=== PATIENT | female | born 1985 | race American Indian/Alaskan Native ===

== ENCOUNTER 2019-07-16 21:17 | Emergency (ER) | payer SELFPAY ==
--- NOTE | 2019-07-16 21:41 | Emergency Department Report ---
{null, Blank Doc - Documentation Documentation: 34-year-old female that presents with janelle flank pain. Was diagnosed with UTI last month but pains started again today. Patient had a syncopal episode in the waiting room before patient has been tinged. Patient refused to Main ED. Will order labs and CT of head }
[2019-07-16 22:13] LABS: Hematocrit 38.7 % (30.3-42.9); Hemoglobin 13.6 gm/dl (10.1-14.3); Mean Corpuscular HGB Conc 35 % (30-34); Mean Corpuscular Volume 94 fl (79-97); Platelet Count 285 K/mm3 (140-440); Red Blood Count 4.13 M/mm3 (3.65-5.03); Red Cell Distribution Width 12.3 % (13.2-15.2)
[2019-07-16] MEDS ORDERED: fentaNYL 100 MCG/2 ML INJ IV ONE (22:28)
[2019-07-16] MEDS ORDERED: SODIUM CHLORIDE 0.9% 1000 ML 1,000 ML IV ONE (22:28)
[2019-07-16] MEDS ORDERED: ONDANSETRON 4 MG/2 ML INJ IV ONE (22:28)
[2019-07-16 22:37] LABS: Alanine Aminotransferase 20 units/L (7-56); Albumin 4.9 g/dL (3.9-5); BUN/Creatinine Ratio 11; Blood Urea Nitrogen 9 mg/dL (7-17); Calcium 9.5 mg/dL (8.4-10.2); Hemolysis Index 4
--- NOTE | 2019-07-16 22:38 | Emergency Department Report ---
{null, HPI - General Chief Complaint: Abdominal Pain Time Seen by Provider: 07/16/19 21:39 - HPI HPI: Room 23 The patient is a 34-year-old female present with a chief complaint of back pain. Patient states was diagnosed with a UTI 1 month ago and completed her course of antibiotics. The patient states she was in her usual state of health until this morning when she developed bilateral flank pain described as sharp and waxing and waning in nature. Patient admits to nausea vomiting and chills. Patient denies dysuria but admits to hematuria only because she is currently on her cycle (normal time). Patient currently gives her pain a score of 9/10 ED Past Medical Hx - Past Medical History Previous Medical History?: Yes Additional medical history: UTI - Surgical History Past Surgical History?: No Additional Surgical History: Bilateral salpingectomy - Family History Family history: no significant - Social History Smoking Status: Never Smoker Substance Use Type: Marijuana - Medications Home Medications: Home Medications Medication Instructions Recorded Confirmed Last Taken Type Ciprofloxacin HCl [Ciprofloxacin 500 mg PO Q12HR #20 tab 07/17/19 Unknown Rx TAB] HYDROcodone/APAP 5-325 [[place] 1 - 2 each PO Q6HR PRN #14 tablet 07/17/19 Unknown Rx 5/325] Ibuprofen [Motrin 800 MG tab] 800 mg PO Q8HR PRN #20 tablet 07/17/19 Unknown Rx Promethazine [Phenergan] 25 mg PO Q6HR PRN #20 tab 07/17/19 Unknown Rx ED Review of Systems ROS: Stated complaint: BACK PAIN Other details as noted in HPI Constitutional: chills Eyes: denies: eye pain ENT: denies: throat pain Respiratory: no symptoms reported Cardiovascular: denies: chest pain Endocrine: no symptoms reported Gastrointestinal: nausea, vomiting. denies: abdominal pain Genitourinary: hematuria. denies: dysuria, abnormal menses Musculoskeletal: back pain Neurological: denies: headache Physical Exam - Physical Exam Physical Exam: GENERAL: The patient is well-developed well-nourished female lying on stretcher appearing to be in moderate discomfort. [] HEENT: Normocephalic. Atraumatic. Extraocular motions are intact. Patient has moist mucous membranes. NECK: Supple. Trachea midline CHEST/LUNGS: Clear to auscultation. There is no respiratory distress noted. HEART/CARDIOVASCULAR: Regular. There is no tachycardia. There is no gallop rub or murmur. ABDOMEN: Abdomen is soft, nontender. Patient has normal bowel sounds. There is no abdominal distention. SKIN: There is no rash. There is no edema. There is no diaphoresis. NEURO: The patient is awake, alert, and oriented. The patient is cooperative. The patient has no focal neurologic deficits. The patient has normal speech. Cranial nerves II through XII grossly intact, no drift MUSCULOSKELETAL: There is bilateral flank pain. There is no evidence of acute injury. ED Medical Decision Making - Lab Data Result diagrams: 07/16/19 21:50 07/16/19 21:50 Laboratory Tests 07/16/19 07/16/19 07/16/19 21:50 21:50 21:50 WBC 8.7 RBC 4.13 Hgb 13.6 Hct 38.7 MCV 94 MCH 33 H MCHC 35 H RDW 12.3 L Plt Count 285 Add Manual Diff Complete Total Counted 100 Seg Neutrophils % Care Tech Seg Neuts % (Manual) 89.0 H Band Neutrophils % 0 Lymphocytes % (Manual) 10.0 L Reactive Lymphs % (Man) 0 Monocytes % (Manual) 1.0 Eosinophils % (Manual) 0 Basophils % (Manual) 0 Metamyelocytes % 0 Myelocytes % 0 Promyelocytes % 0 Blast Cells % 0 Nucleated RBC % Not Reportable Seg Neutrophils # Man 7.7 Band Neutrophils # 0.0 Lymphocytes # (Manual) 0.9 L Abs React Lymphs (Man) 0.0 Monocytes # (Manual) 0.1 Eosinophils # (Manual) 0.0 Basophils # (Manual) 0.0 Metamyelocytes # 0.0 Myelocytes # 0.0 Promyelocytes # 0.0 Blast Cells # 0.0 WBC Morphology Not Reportable Hypersegmented Neuts Not Reportable Hyposegmented Neuts Not Reportable Hypogranular Neuts Not Reportable Smudge Cells Not Reportable Toxic Granulation Not Reportable Toxic Vacuolation Not Reportable Dohle Bodies Not Reportable Pelger-Huet Anomaly Not Reportable Priscilla Rods Not Reportable Platelet Estimate Not Reportable Clumped Platelets Rare Plt Clumps, EDTA Not Reportable Large Platelets 1+ Giant Platelets Not Reportable Platelet Satelliting Not Reportable Plt Morphology Comment Not Reportable RBC Morphology Not Reportable Dimorphic RBCs Not Reportable Polychromasia Not Reportable Hypochromasia Not Reportable Poikilocytosis Not Reportable Anisocytosis Few Microcytosis Not Reportable Macrocytosis Not Reportable Spherocytes Not Reportable Pappenheimer Bodies Not Reportable Sickle Cells Not Reportable Target Cells Not Reportable Tear Drop Cells Not Reportable Ovalocytes Not Reportable Helmet Cells Not Reportable [place]-Lang[place] Bodies Not Reportable Kathleen Rings Not Reportable [place] Cells Not Reportable Bite Cells Not Reportable Crenated Cell Not Reportable Elliptocytes Not Reportable Acanthocytes (Spur) Not Reportable Rouleaux Not Reportable Hemoglobin C Crystals Not Reportable Schistocytes Not Reportable Malaria parasites Not Reportable Hamzah Bodies Not Reportable Hem Pathologist Commnt No Sodium 145 Potassium 3.4 L Chloride 105.8 Carbon Dioxide 19 L Anion Gap 24 BUN 9 Creatinine 0.8 Estimated GFR > 60 BUN/Creatinine Ratio 11 Glucose 175 H Calcium 9.5 Total Bilirubin 0.30 AST 24 ALT 20 Alkaline Phosphatase 55 Troponin T < 0.010 Total Protein 8.0 Albumin 4.9 Albumin/Globulin Ratio 1.6 HCG, Qual Negative Urine Color Urine Turbidity Urine pH Ur Specific [place] Urine Protein Urine Glucose (UA) Urine Ketones Urine Blood Urine Nitrite Urine Bilirubin Urine Urobilinogen Ur Leukocyte Esterase Urine WBC (Auto) Urine RBC (Auto) U Epithel Cells (Auto) Urine Bacteria (Auto) Urine Mucus Urine Opiates Screen Urine Methadone Screen Ur Barbiturates Screen Ur Phencyclidine Scrn Ur Amphetamines Screen U Benzodiazepines Scrn Urine Cocaine Screen U Marijuana (THC) Screen Drugs of Abuse Note 07/16/19 07/16/19 22:21 22:21 WBC RBC Hgb Hct MCV MCH MCHC RDW Plt Count Add Manual Diff Total Counted Seg Neutrophils % Seg Neuts % (Manual) Band Neutrophils % Lymphocytes % (Manual) Reactive Lymphs % (Man) Monocytes % (Manual) Eosinophils % (Manual) Basophils % (Manual) Metamyelocytes % Myelocytes % Promyelocytes % Blast Cells % Nucleated RBC % Seg Neutrophils # Man Band Neutrophils # Lymphocytes # (Manual) Abs React Lymphs (Man) Monocytes # (Manual) Eosinophils # (Manual) Basophils # (Manual) Metamyelocytes # Myelocytes # Promyelocytes # Blast Cells # WBC Morphology Hypersegmented Neuts Hyposegmented Neuts Hypogranular Neuts Smudge Cells Toxic Granulation Toxic Vacuolation Dohle Bodies Pelger-Huet Anomaly Priscilla Rods Platelet Estimate Clumped Platelets Plt Clumps, EDTA Large Platelets Giant Platelets Platelet Satelliting Plt Morphology Comment RBC Morphology Dimorphic RBCs Polychromasia Hypochromasia Poikilocytosis Anisocytosis Microcytosis Macrocytosis Spherocytes Pappenheimer Bodies Sickle Cells Target Cells Tear Drop Cells Ovalocytes Helmet Cells Lowry-Langston Bodies Kathleen Rings Erma Cells Bite Cells Crenated Cell Elliptocytes Acanthocytes (Spur) Rouleaux Hemoglobin C Crystals Schistocytes Malaria parasites Hamzah Bodies Hem Pathologist Commnt Sodium Potassium Chloride Carbon Dioxide Anion Gap BUN Creatinine Estimated GFR BUN/Creatinine Ratio Glucose Calcium Total Bilirubin AST ALT Alkaline Phosphatase Troponin T Total Protein Albumin Albumin/Globulin Ratio HCG, Qual Urine Color Yellow Urine Turbidity Clear Urine pH 5.0 Ur Specific [place] 1.011 Urine Protein <15 mg/dl Urine Glucose (UA) 50 Urine Ketones Tr Urine Blood Lg Urine Nitrite Neg Urine Bilirubin Neg Urine Urobilinogen < 2.0 Ur Leukocyte Esterase Neg Urine WBC (Auto) 21.0 H Urine RBC (Auto) 64.0 U Epithel Cells (Auto) 11.0 Urine Bacteria (Auto) 2+ Urine Mucus 3+ Urine Opiates Screen Presumptive negative Urine Methadone Screen Presumptive negative Ur Barbiturates Screen Presumptive negative Ur Phencyclidine Scrn Presumptive negative Ur Amphetamines Screen Presumptive negative U Benzodiazepines Scrn Presumptive negative Urine Cocaine Screen Presumptive negative U Marijuana (THC) Screen Presumptive positive Drugs of Abuse Note Disclamer - EKG Data -: EKG Interpreted by [place] EKG shows normal: sinus rhythm Rate: normal - EKG Data When compared to previous EKG there are: previous EKG unavailable Interpretation: other (No ischemic changes seen) - Radiology Data Radiology results: report reviewed (CT abdomen pelvis), image reviewed (CT abdomen pelvis) [facility] [address] [place] [address] Cat Scan Report Signed Patient: AYLEEN ROJAS MR #: [id number] : 1985 Acct:[id number] Age/Sex: 34 / F ADM Date: 07/16/19 Loc: ED Attending Dr: Ordering Physician: ANA PAULA LAYTON MD Date of Service: 07/16/19 Procedure(s): CT abdomen pelvis w con Accession Number(s): [id number] cc: ANA PAULA LAYTON MD CT abdomen pelvis w con INDICATION: Back pain, pyuria. History of UTI 1 month ago. TECHNIQUE: All CT scans at this location are performed using the following dose modulation technique: Automated exposure control. Helical slices were obtained through the abdomen and pelvis. No contrast is administered. COMPARISON: None available. FINDINGS: Abdomen: No acute abnormality is seen in the lower chest. There is fatty infiltration of the liver adjacent to the falciform ligament. There are multiple tiny hypodensities in the liver which are too small to characterize. Statistically these are likely benign and likely represent tiny cysts. The spleen, pancreas, adrenal glands, and kidneys show no acute abnormalities. There is no hydronephrosis. There is no adenopathy. The aorta is normal in diameter. There is no obstruction, inflammation, or free air. Pelvis: The appendix is unremarkable. There is no obstruction or inflammation. There is no adenopathy. Phleboliths. On review of bone windows, no acute osseous abnormalities are seen. IMPRESSION: 1. There is no obstruction, inflammation, or free air. There are no abnormal fluid collections. No acute abnormality is seen in the abdomen or pelvis. Signer Name: Will Camacho MD Signed: 07/17/2019 12:43 AM Workstation Name: [id number] Transcribed By: SS Dictated By: Will Camacho MD Electronically Authenticated By: Will Camacho MD Signed Date/Time: 07/17/1942 DD/ 0039 TD/TT: - Differential Diagnosis Pyelonephritis, renal abscess, UTI, renal colic Critical care attestation.: If time is entered above; I have spent that time in minutes in the direct care of this critically ill patient, excluding procedure time. ED Disposition Clinical Impression: Pyelonephritis, Acute back pain Disposition: DC-01 TO HOME OR SELFCARE Is pt being admited?: No Does the pt Need Aspirin: No Condition: Stable Instructions: Abdominal Pain (ED) Additional Instructions: Return to the emergency department should you develop worsening symptoms, inability to tolerate food or liquids, high fever or any other concerns Prescriptions: Ciprofloxacin HCl [Ciprofloxacin TAB] 500 mg PO Q12HR #20 tab Ibuprofen [Motrin 800 MG tab] 800 mg PO Q8HR PRN #20 tablet PRN Reason: Pain, Moderate (4-6) HYDROcodone/APAP 5-325 [[place] 5/325] 1 - 2 each PO Q6HR PRN #14 tablet PRN Reason: Pain Promethazine [Phenergan] 25 mg PO Q6HR PRN #20 tab PRN Reason: Nausea Referrals: [facility] [Outside] - 3-5 Days Time of Disposition: 00:56 }
[2019-07-16 23:10] LABS: Basophils % (Manual) 0 % (0.0-1.8); Eosinophils % (Manual) 0 % (0.0-4.3); Total Cells Counted 100
[2019-07-16 23:15] LABS: Bacteria,Urine 2+ /HPF (Negative); Bilirubin,Urine NEG (Negative); Blood,Urine LG (Negative); Color,Urine Yellow (Yellow); Mucus,Urine 3+ /HPF; Protein,Urine <15 mg/dL mg/dL (Negative); Urobilinogen,Urine < 2.0 mg/dL (<2.0)
[2019-07-16 23:16] LABS: Anisocytosis Few
[2019-07-16 23:16] LABS: Amphetamine Screen,Urine PRESUMPTIVE NEGATIVE; Benzodiazepines Screen,Urine PRESUMPTIVE NEGATIVE; Cocaine Screen,Urine PRESUMPTIVE NEGATIVE; Methadone Screen,Urine PRESUMPTIVE NEGATIVE; Opiate Screen,Urine PRESUMPTIVE NEGATIVE
[2019-07-16 23:18] LABS: Large Platelets 1+; Platelet Clumps Rare
[2019-07-16 23:27] LABS: Cannabinoid Screen,Urine PRESUMPTIVE POSITIVE
[2019-07-17] MEDS ORDERED: KETOROLAC 30 MG/1 ML INJ ONE (00:25)
[2019-07-17] MEDS ORDERED: fentaNYL 100 MCG/2 ML INJ IV ONE (00:27)
[2019-07-17] MEDS ORDERED: KETOROLAC 30 MG/1 ML INJ IV ONE (00:27)
[2019-07-17] MEDS ORDERED: SODIUM CHLORIDE 0.9% 1000 ML 1,000 ML IV ONE (00:35)
--- NOTE | 2019-07-17 00:47 | Cat Scan Report ---
{null, CT abdomen pelvis w con INDICATION: Back pain, pyuria. History of UTI 1 month ago. TECHNIQUE: All CT scans at this location are performed using the following dose modulation technique: Automated exposure control. Helical slices were obtained through the abdomen and pelvis. No contrast is adminis tered. COMPARISON: None available. FINDINGS: Abdomen: No acute abnormality is seen in the lower chest. There is fatty infiltration of the liver adjacent to the falciform ligament. There are multiple tiny hypodensities in the liver which are too small to characterize. Statistically these are likely benign and likely represent tiny cysts. The spleen, pancreas, adrenal glands, and kidneys show no acute abnormalities. There is no hydronephr osis. There is no adenopathy. The aorta is normal in diameter. There is no obstruction, inflammation, or free air. Pelvis: The appendix is unremarkable. There is no obstruction or inflammation. There is no adenopathy . Phleboliths. On review of bone windows, no acute osseous abnormalities are seen. IMPRESSION: 1. There is no obstruction, inflammation, or free air. There are no abnormal fluid collections. No ac akila abnormality is seen in the abdomen or pelvis. Signer Name: Will Camacho MD Signed: 07/17/2019 12:43 AM Workstation Name: [id number] }
[2019-07-17] MEDS ORDERED: levoFLOXacin 500 MG TAB PO ONE (00:57)
[2019-07-17 01:37] VITALS: BP 100/66
== END 2019-07-17 01:40 | disposition home or self-care (01) ==
LOC: ED 21:17
DX: N10 Acute pyelonephritis (principal); F12.10 Cannabis abuse, uncomplicated; Z98.890 Other specified postprocedural states; Z79.899 Other long term (current) drug therapy
CPT/HCPCS: 36415; 74177; 80053; 80307; 81001; 84484; 84703; 85007; 85025; 87086; 93005; 93010; 96361; 96374; 96375; 99285; J1885; J2405; J3010; J7030; Q9967

== ENCOUNTER 2019-08-16 01:40 | Emergency (ER) | payer SELFPAY ==
[2019-08-16 04:44] LABS: Hematocrit 39.7 % (30.3-42.9); Hemoglobin 13.4 gm/dl (10.1-14.3); Mean Corpuscular HGB Conc 34 % (30-34); Mean Corpuscular Volume 94 fl (79-97); Platelet Count 279 K/mm3 (140-440); Red Blood Count 4.24 M/mm3 (3.65-5.03); Red Cell Distribution Width 12.8 % (13.2-15.2)
[2019-08-16 04:48] LABS: Alanine Aminotransferase 15 units/L (7-56); Albumin 4.4 g/dL (3.9-5); BUN/Creatinine Ratio 11; Blood Urea Nitrogen 9 mg/dL (7-17); Calcium 9.3 mg/dL (8.4-10.2); Hemolysis Index 29
[2019-08-16 05:24] LABS: Band Neutrophils # (Manual) 0.3 K/mm3
[2019-08-16 05:25] LABS: Basophils % (Manual) 0 % (0.0-1.8); Eosinophils % (Manual) 0 % (0.0-4.3); Total Cells Counted 100
[2019-08-16 05:26] LABS: Anisocytosis Few; Burr Cells Rare
[2019-08-16 05:28] LABS: Large Platelets Few; Platelet Estimate Consistent w Auto
[2019-08-16] MEDS ORDERED: ONDANSETRON 4 MG/2 ML INJ IV STA (06:14)
[2019-08-16] MEDS ORDERED: SODIUM CHLORIDE 0.9% 1000 ML 1,000 ML IV ONE (06:14)
[2019-08-16] MEDS ORDERED: KETOROLAC 30 MG/1 ML INJ IV STA (06:14)
[2019-08-16] MEDS ORDERED: cefTRIAXone/NS 1 GM/50 ML 1 GM/50 ML BAG IV STA (06:15)
--- NOTE | 2019-08-16 06:18 | Emergency Department Report ---
ED Female HPI - General Chief complaint: Back Pain/Injury Stated complaint: BACK PAIN Time Seen by Provider: 08/16/19 05:57 Source: patient, EMS Mode of arrival: Ambulatory Limitations: No Limitations - History of Present Illness Initial comments: 34-year-old -[place] female presents emerged department complaining of a 1/2-day history of progressive worsening flank pain and dysuria now associated with nausea with chills occasionally. She reports no hematuria no hematemesis no hematochezia. She reports no chest pain or palpitations. MD Complaint: dysuria (And flank pain) Radiation: suprapubic Severity: mild Quality: burning Improves with: none Worsens with: urination Associated Symptoms: dysuria. denies: denies other symptoms, vaginal discharge, abdominal pain, fever/chills, loss of appetite, shortness of breath, syncope, weakness - Related Data Sexually active: No Previous Rx's Medication Instructions Recorded Last Taken Type Ciprofloxacin HCl [Ciprofloxacin 500 mg PO Q12HR #20 tab 07/17/19 Unknown Rx TAB] HYDROcodone/APAP 5-325 [[place] 1 - 2 each PO Q6HR PRN #14 tablet 07/17/19 Unknown Rx 5/325] Ibuprofen [Motrin 800 MG tab] 800 mg PO Q8HR PRN #20 tablet 07/17/19 Unknown Rx Promethazine [Phenergan] 25 mg PO Q6HR PRN #20 tab 07/17/19 Unknown Rx Phenazopyridine [Pyridium] 200 mg PO BID #14 tab 08/16/19 Unknown Rx Allergies Allergy/AdvReac Type Severity Reaction Status Date / Time No Known Allergies Allergy Verified 07/17/19 00:26 ED Review of Systems ROS: Stated complaint: BACK PAIN Other details as noted in HPI Comment: All other systems reviewed and negative ED Past Medical Hx - Past Medical History Previous Medical History?: No Additional medical history: Kidney Infection - Surgical History Past Surgical History?: Yes Additional Surgical History: Bilateral salpingectomy - Social History Smoking Status: Never Smoker Substance Use Type: Marijuana - Medications Home Medications: Home Medications Medication Instructions Recorded Confirmed Last Taken Type Ciprofloxacin HCl [Ciprofloxacin 500 mg PO Q12HR #20 tab 07/17/19 Unknown Rx TAB] HYDROcodone/APAP 5-325 [[place] 1 - 2 each PO Q6HR PRN #14 tablet 07/17/19 Unknown Rx 5/325] Ibuprofen [Motrin 800 MG tab] 800 mg PO Q8HR PRN #20 tablet 07/17/19 Unknown Rx Promethazine [Phenergan] 25 mg PO Q6HR PRN #20 tab 07/17/19 Unknown Rx Phenazopyridine [Pyridium] 200 mg PO BID #14 tab 08/16/19 Unknown Rx ED Physical Exam - General Limitations: No Limitations General appearance: alert, in no apparent distress - Head Head exam: Present: atraumatic, normocephalic - Eye Eye exam: Present: normal appearance, PERRL, EOMI Pupils: Present: normal accommodation - ENT ENT exam: Present: normal exam, normal orophraynx, mucous membranes moist, TM's normal bilaterally, normal external ear exam - Neck Neck exam: Present: normal inspection, full ROM - Respiratory Respiratory exam: Present: normal lung sounds bilaterally. Absent: respiratory distress, chest wall tenderness, accessory muscle use - Cardiovascular Cardiovascular Exam: Present: regular rate, normal rhythm. Absent: systolic murmur, diastolic murmur, rubs, gallop - GI/Abdominal GI/Abdominal exam: Present: soft, normal bowel sounds - Extremities Exam Extremities exam: Present: normal inspection - Back Exam Back exam: Present: normal inspection, CVA tenderness (R), CVA tenderness (L) - Neurological Exam Neurological exam: Present: alert, oriented X3, CN II-XII intact - Psychiatric Psychiatric exam: Present: normal affect, normal mood. Absent: anxious, manic, suicidal ideation - Skin Skin exam: Present: warm, dry, intact, normal color. Absent: rash, cyanosis, erythema, petechiae, pallor, abrasion ED Course Vital Signs 08/16/19 08/16/19 02:04 06:59 Temperature 98.1 F Pulse Rate 83 Respiratory 18 18 Rate Blood Pressure 120/69 O2 Sat by Pulse 98 Oximetry ED Medical Decision Making - Lab Data Result diagrams: 08/16/19 04:04 08/16/19 04:04 Critical care attestation.: If time is entered above; I have spent that time in minutes in the direct care of this critically ill patient, excluding procedure time. ED Disposition Clinical Impression: Dysuria Disposition: DC-01 TO HOME OR SELFCARE Is pt being admited?: No Does the pt Need Aspirin: No Condition: Stable Instructions: Dysuria (ED) Prescriptions: Phenazopyridine [Pyridium] 200 mg PO BID #14 tab Referrals: [facility], [Primary Care Provider] - 3-5 Days [facility] [Provider Group] - 3-5 Days
[2019-08-16 06:36] LABS: Bilirubin,Urine NEG (Negative); Blood,Urine SM (Negative); Color,Urine Yellow (Yellow); Urobilinogen,Urine < 2.0 mg/dL (<2.0)
[2019-08-16] MEDS ORDERED: METOCLOPRAMIDE 10 MG/2 ML INJ IV ONE (07:42)
[2019-08-16] MEDS ORDERED: diphenhydrAMINE 50 MG/ML VIAL IV ONE (07:43)
[2019-08-16] MEDS ORDERED: diphenhydrAMINE 50 MG/ML VIAL ONE (07:46)
[2019-08-16 08:23] VITALS: BP 121/79
== END 2019-08-16 08:20 | disposition home or self-care (01) ==
LOC: ED 01:40
DX: R30.0 Dysuria (principal); F12.90 Cannabis use, unspecified, uncomplicated; Z98.890 Other specified postprocedural states; Z79.899 Other long term (current) drug therapy
CPT/HCPCS: 36415; 80053; 81001; 84703; 85007; 85025; 96365; 96375; 99284; J0696; J1200; J1885; J2405; J2765; J7030

== ENCOUNTER 2019-10-24 18:28 | Emergency (ER) | payer SELFPAY ==
[2019-10-24 19:14] LABS: Bilirubin,Urine NEG (Negative); Blood,Urine NEG (Negative); Color,Urine Amber (Yellow); Mucus,Urine FEW /HPF; Protein,Urine <15 mg/dL mg/dL (Negative)
--- NOTE | 2019-10-24 19:41 | Emergency Department Report ---
ED Female HPI - General Chief complaint: Urogenital-Female Stated complaint: POSS UTI Time Seen by Provider: 10/24/19 19:36 Source: patient Mode of arrival: Ambulatory Limitations: No Limitations - History of Present Illness Initial comments: 34-year-old -[place] female no acute distress and nontoxic presents to the emergency room complaining of burning with urination and lower back pain. Patient states is been going on for about 2 days. Patient reports is been taken [id number] Azo and cranberry pills with no relief. Patient does admit to dysuria urgency and frequency of urination. Patient reports she has a history of UTIs. She denies any fever but admits to chills. MD Complaint: dysuria Onset/Timin -: days(s) Location: suprapubic Radiation: non-radiating Severity: moderate Severity scale (0 -10): 5 Quality: burning Improves with: none Worsens with: urination Are you Now?: No Associated Symptoms: fever/chills (Chills no fever), dysuria. denies: abdominal pain, nausea/vomiting - Related Data Previous Rx's Medication Instructions Recorded Last Taken Type Ciprofloxacin HCl [Ciprofloxacin 500 mg PO Q12HR #20 tab 07/17/19 Unknown Rx TAB] HYDROcodone/APAP 5-325 [[place] 1 - 2 each PO Q6HR PRN #14 tablet 07/17/19 Unknown Rx 5/325] Ibuprofen [Motrin 800 MG tab] 800 mg PO Q8HR PRN #20 tablet 07/17/19 Unknown Rx Promethazine [Phenergan] 25 mg PO Q6HR PRN #20 tab 07/17/19 Unknown Rx Phenazopyridine [Pyridium] 200 mg PO BID #14 tab 08/16/19 Unknown Rx Nitrofurantoin [place]/M-Cryst 100 mg PO Q12HR 10 Days #20 capsule 10/24/19 Unknown Rx [Macrobid CAP] Phenazopyridine [Pyridium] 100 mg PO TID #6 tab 10/24/19 Unknown Rx Allergies Allergy/AdvReac Type Severity Reaction Status Date / Time No Known Allergies Allergy Verified 07/17/19 00:26 ED Review of Systems ROS: Stated complaint: POSS UTI Other details as noted in HPI Comment: All other systems reviewed and negative ED Past Medical Hx - Past Medical History Previous Medical History?: Yes Additional medical history: Kidney Infection - Surgical History Past Surgical History?: Yes Additional Surgical History: Bilateral salpingectomy - Social History Smoking Status: Never Smoker Substance Use Type: Marijuana - Medications Home Medications: Home Medications Medication Instructions Recorded Confirmed Last Taken Type Ciprofloxacin HCl [Ciprofloxacin 500 mg PO Q12HR #20 tab 07/17/19 Unknown Rx TAB] HYDROcodone/APAP 5-325 [[place] 1 - 2 each PO Q6HR PRN #14 tablet 07/17/19 Unknown Rx 5/325] Ibuprofen [Motrin 800 MG tab] 800 mg PO Q8HR PRN #20 tablet 07/17/19 Unknown Rx Promethazine [Phenergan] 25 mg PO Q6HR PRN #20 tab 07/17/19 Unknown Rx Phenazopyridine [Pyridium] 200 mg PO BID #14 tab 08/16/19 Unknown Rx Nitrofurantoin [place]/M-Cryst 100 mg PO Q12HR 10 Days #20 capsule 10/24/19 Unknown Rx [Macrobid CAP] Phenazopyridine [Pyridium] 100 mg PO TID #6 tab 10/24/19 Unknown Rx ED Physical Exam - General Limitations: No Limitations General appearance: alert, in no apparent distress - Head Head exam: Present: atraumatic, normocephalic - Eye Eye exam: Present: normal appearance - ENT ENT exam: Present: mucous membranes moist - Neck Neck exam: Present: normal inspection - Extremities Exam Extremities exam: Present: normal inspection - Back Exam Back exam: Present: normal inspection - Neurological Exam Neurological exam: Present: alert, oriented X3, normal gait - Psychiatric Psychiatric exam: Present: normal affect, normal mood - Skin Skin exam: Present: warm, dry, intact, normal color. Absent: rash ED Course Vital Signs 10/24/19 18:46 Temperature 98.4 F Pulse Rate 90 Respiratory 17 Rate Blood Pressure 109/71 O2 Sat by Pulse 97 Oximetry ED Medical Decision Making - Medical Decision Making 34-year-old -[place] female no acute distress and nontoxic presents to the emergency room complaining of burning with urination and lower back pain. Patient states is been going on for about 2 days. Patient reports is been taken [id number] Azo and cranberry pills with no relief. Patient does admit to dysuria urgency and frequency of urination. Patient reports she has a history of UTIs. She denies any fever but admits to chills. Urinalysis shows that she has a urinary tract infection will place her on Macrobid and Pyridium patient is to increase her fluid intake. Critical care attestation.: If time is entered above; I have spent that time in minutes in the direct care of this critically ill patient, excluding procedure time. ED Disposition Clinical Impression: UTI (urinary tract infection) Disposition: TO HOME OR SELFCARE Is pt being admited?: No Does the pt Need Aspirin: No Condition: Stable Instructions: Urinary Tract Infection in Women (ED) Additional Instructions: Urinalysis shows that you have a urinary tract infection. Complete your antibiotics taken medication for the painful burning with urination. Increase your fluid intake. Follow-up with a [facility] for frequent UTIs. Prescriptions: Nitrofurantoin [place]/M-Cryst [Macrobid CAP] 100 mg PO Q12HR 10 Days #20 capsule Phenazopyridine [Pyridium] 100 mg PO TID #6 tab Referrals: [facility] [Provider Group] - 3-5 Days [facility] [Provider Group] - 3-5 Days Forms: Work/School Release Form(ED)
[2019-10-24 19:52] VITALS: BP 118/52
== END 2019-10-24 19:53 | disposition home or self-care (01) ==
LOC: ED 18:28
DX: N39.0 Urinary tract infection, site not specified (principal); F12.10 Cannabis abuse, uncomplicated; Z98.890 Other specified postprocedural states; Z79.1 Long term (current) use of non-steroidal anti-inflammatories (NSAID); Z79.2 Long term (current) use of antibiotics; Z79.899 Other long term (current) drug therapy
CPT/HCPCS: 81001; 87086